=== PATIENT | female | born 1940 | race Caucasian/White ===

== ENCOUNTER → 2021-08-07 | Outpatient (CLI) | payer OTHER ==
[~2021-08-07] MED LIST: ASPI81CH; ATEN50; DIPH50 PO; FLUV40; LEVSOD100; METPRE4DP PO; OMEP20ER; RANI150 PO; UBID200
== END | disposition home or self-care (01) ==
LOC: LAB SHORT 14:25
DX: L08.9 Local infection of the skin and subcutaneous tissue, unspecified (principal)
CPT/HCPCS: 87070; 87077; 87186; 87205